=== PATIENT | male | born 1985 | race Caucasian/White ===

== ENCOUNTER 2019-05-03 21:21 | Emergency (ER) | payer SELFPAY ==
[~2019-05-03] VITALS: Ht 177.8 cm; Wt 78.0 kg
[2019-05-04] MEDS ORDERED: SULFAMETHOXAZOLE/TRIMETHOPRIM 800/160MG TABLET PO ONE (00:30)
[2019-05-04] MEDS ORDERED: ACETAMINOPHEN 325MG TABLET PO ONE (00:30)
[2019-05-04] MEDS ORDERED: LIDOCAINE HCL/EPINEPHRINE 1%-EPI 1:100,000 20 ML VIAL INFIL ONE (00:45)
[2019-05-04 01:32] VITALS: BP 120/70
== END 2019-05-04 01:33 | disposition home or self-care (01) ==
LOC: ER 21:21
DX: L02.31 Cutaneous abscess of buttock (principal)
CPT/HCPCS: 10060; 99283; J3490